=== PATIENT | male | born 1970 | race Hispanic/Latino ===

== ENCOUNTER 2019-10-02 10:40 | Emergency (ER) | payer OTHER ==
[2019-10-02 11:26] LABS: BASOPHILS % 0.2 % (0.0-1.0); EOSINOPHILS % 0.2 % (0.0-6.0); HEMATOCRIT 43.9 % (38.2-49.6); HEMOGLOBIN 15.4 g/dL (14.0-18.0); LYMPHOCYTES # (AUTO) 1.5 (1.0-3.2); LYMPHOCYTES % 24.3 % (18.0-39.1); MEAN CORPUSCULAR HEMOGLOBIN 29.4 pg (28-32); MEAN CORPUSCULAR HGB CONC 35.1 g/dL (31-35); MEAN CORPUSCULAR VOLUME 83.9 fL (81-99); MONOCYTES # (AUTO) 0.4 (0.2-0.8); MONOCYTES % 5.8 % (4.4-11.3); NEUTROPHILS # (AUTO) 4.2 (2.1-6.9); NEUTROPHILS % 69.3 % (38.7-80.0); PLATELET COUNT 165 x10e3/uL (140-360); RED BLOOD COUNT 5.23 x10e6/uL (4.3-5.7); RED CELL DISTRIBUTION WIDTH 12.4 % (11.7-14.4)
[2019-10-02] MEDS ORDERED: CEFTRIAXONE SOD 1 GM/NS 50 ML 50 ML IV ONE (11:30)
[2019-10-02] MEDS ORDERED: SODIUM CHLORIDE 0.9% 1000ML 1,000 ML IV STA (11:35)
[2019-10-02] MEDS ORDERED: AZITHROMYCIN 500MG/NS 250 ML 250 ML IV STA (11:35)
[2019-10-02 11:45] LABS: ALANINE AMINOTRANSFERASE 43 IU/L (0-55); ALBUMIN 4.1 g/dL (3.5-5.0); ALBUMIN/GLOBULIN RATIO 1.1 (0.8-2.0); ALKALINE PHOSPHATASE 98 IU/L (40-150); ANION GAP 16.4 mmol/L (8-16); BLOOD UREA NITROGEN 12 mg/dL (7-26); BUN/CREATININE RATIO 15 (6-25); CARBON DIOXIDE 20 mmol/L (22-29); CHLORIDE 103 mmol/L (98-107); CREATINE KINASE 60 IU/L (30-200); CREATININE, SERUM 0.82 mg/dL (0.72-1.25); EST GLOMERULAR FILTRATION RATE > 60 ML/MIN (60-); GLUCOSE 108 mg/dL (74-118); POTASSIUM 3.4 mmol/L (3.5-5.1); SODIUM 136 mmol/L (136-145)
[2019-10-02 11:59] LABS: CLARITY,URINE CLEAR (CLEAR); COLOR,URINE ORANGE (YELLOW); LEUKOCYTE ESTERASE ,URINE NEGATIVE (NEGATIVE)
[2019-10-02 12:00] LABS: BILIRUBIN,URINE SMALL (NEGATIVE); KETONES,URINE TRACE (NEGATIVE); NITRITE,URINE NEGATIVE (NEGATIVE); PROTEIN,URINE DIPSTICK 2+ (NEGATIVE); URINE UROBILINOGEN 0.2 mg/dL (0.2 - 1)
[2019-10-02 12:09] LABS: RBC,URINE 0-5 /HPF (0-5)
[2019-10-02 12:10] LABS: EPITHELIAL CELLS,URINE FEW /LPF
[2019-10-02 12:11] LABS: BACTERIA,URINE MANY /HPF
[2019-10-02 12:12] LABS: CALCIUM OXALATE CRYSTALS,UR MANY (FEW)
--- NOTE | 2019-10-02 12:55 | Emergency Department Note ---
History of Present Illnes History of Present Illness Chief Complaint: COVID PUI History of Present Illness This is a 48 year old male arrives to the ED with complaints of cough fever and chills for the past 2 days. Patient states his tested positive for Covid 19 and he is concerned he is getting worse . 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 Any updates have been documented here. Past Medical History Recent Fever: Yes Clinical Suspicion of Infectio: Yes New/Unexplained Change in Ment: No Other Medical History: BACK PAIN Past Surgical History: Appendectomy Social History Smoking Cessation: Never Smoker Alcohol Use: Occasional Any Illegal Drug Use: No TB Exposure/Symptoms: No Physically hurt or threatened: No Other Last Tetanus: UNK Any Pre-Existing Lines (PICC,: No Is patient up to date on immun: Yes Last Flu: 2019 Last Pneumovax: NO Review of Systems Review of Systems Constitutional: Reports no symptoms EENTM: Reports no symptoms Cardiovascular: Reports no symptoms Respiratory: Reports as per HPI, Reports cough, Reports dyspnea Gastrointestinal: Reports no symptoms Genitourinary: Reports no symptoms Musculoskeletal: Reports no symptoms Integumentary: Reports no symptoms Neurological: Reports no symptoms Psychological: Reports no symptoms Endocrine: Reports no symptoms Hematological/Lymphatic: Reports no symptoms Review of other systems: All other systems negative Physical Exam Related Data Allergies: Coded Allergies: No Known Allergies (Unverified , 10/02/19) Triage Vital Signs Vital Signs Date Time Temp Pulse Resp B/P (MAP) Pulse Ox O2 Delivery O2 Flow Rate FiO2 10/02/19 10:46 99.4 112 26 137/93 96 Vital signs reviewed: Yes Physical Exam CONSTITUTIONAL Constitutional: Present well-developed, Present well-nourished HENT HENT: Present normocephalic, Present atraumatic, Present oropharynx clear/ moist, Present nose normal HENT L/R: Present left ext ear normal, Present right ext ear normal EYES Eyes: Reports PERRL, Reports conjunctivae normal NECK Neck: Present ROM normal PULMONARY Pulmonary: Present effort normal, Present respiratory distress (mild tachypnea) CARDIOVASCULAR Cardiovascular: Present regular rhythm, Present heart sounds normal, Present capillary refill normal, Present normal rate GASTROINTESTINAL Abdominal: Present soft, Present nontender, Present bowel sounds normal GENITOURINARY Genitourinary: Present exam deferred SKIN Skin: Present warm, Present dry MUSCULOSKELETAL Musculoskeletal: Present ROM normal NEUROLOGICAL Neurological: Present alert, Present oriented x 3, Present no gross motor or sensory deficits PSYCHOLOGICAL Psychological: Present mood/affect normal, Present judgement normal Results Laboratory Result Diagram: 10/02/19 1059 Laboratory Laboratory Tests Test 10/02/19 10:59 White Blood Count 6.00 x10e3/uL (4.8-10.8) Red Blood 5.23 x10e6/uL (4.3-5.7) Hemoglobin 15.4 g/dL (14.0-18.0) Hematocrit 43.9 % (38.2-49.6) Mean Corpuscular Volume 83.9 fL (81-99) Mean Corpuscular Hemoglobin 29.4 pg (28-32) Mean Corpuscular Hemoglobin Concent 35.1 g/dL (31-35) Red Cell Distribution Width 12.4 % (11.7-14.4) Platelet Count 165 x10e3/uL (140-360) Neutrophils (%) (Auto) 69.3 % (38.7-80.0) Lymphocytes (%) (Auto) 24.3 % (18.0-39.1) Monocytes (%) (Auto) 5.8 % (4.4-11.3) Eosinophils (%) (Auto) 0.2 % (0.0-6.0) Basophils (%) (Auto) 0.2 % (0.0-1.0) Neutrophils # (Auto) 4.2 (2.1-6.9) Lymphocytes # (Auto) 1.5 (1.0-3.2) Monocytes # (Auto) 0.4 (0.2-0.8) Eosinophils # (Auto) 0.0 (0.0-0.4) Basophils # (Auto) 0.0 (0.0-0.1) Absolute Immature Granulocyte (auto 0.01 x10e3/uL (0-0.1) Lactic Acid Level 1.0 mmol/L (0.5-2.0) Lab results reviewed: Yes Imaging Imaging results reviewed: Yes Impressions Right greater than left mild bibasilar opacities, more likely atelectasis and superimposed aspiration or pneumonia Procedures 12 Lead ECG Interpretation ECG Interpretation : ECG: ECG 1 Prior ECG tracings: reviewed Rhythm: sinus tachycardia Rate: tachycardia QRS axis: normal Conduction: incomplete RBBB ST segments normal: Yes Clinical Impression: non-specific ECG Critical Care Time Total Critical Care Time (min): 35 Critical care time exclusive o: separately billable procedures Critcal care necessary due to: respiratory failure Assessment & Plan Medical Decision Making MDM 48-year-old male arrives to the ED with complaints of shortness of breath and cough. is currently tested positive for Covid 19. Patient's chest x-ray showed questionable pneumonia. High suspicion for Covid 19 given exposure. Patient admitted for further workup and management. Reassessment Reassessment Patient presented during the COVID-19 virus pandemic and has a clinical picture consistent with a COVID-19 source for sepsis. Thus, patient was treated for suspected viral sepsis rather than bacterial sepsis. Given the potential for ARDS and present suggestions of early data from COVID treatment in other areas, fluids were given judiciously and the bacterial sepsis guidelines were deviated from. For consideration of other sources, blood cultures, antibiotics and lactic acid will potentially be ordered. Will continue to monitor blood pressure and adjust fluid resuscitation accordingly." Assessment & Plan Final Impression: (1) COVID-19 (2) Acute respiratory disease due to COVID-19 virus Depart Disposition: ADMITTED Last Vital Signs Date Time Temp Pulse Resp B/P (MAP) Pulse Ox O2 Delivery O2 Flow Rate FiO2 10/02/19 11:32 100.0 101 16 122/87 97 Medications in the ED Ceftriaxone Sodium 50 ml @ 100 mls/hr ONCE ONCE IV Last administered on 10/02/19at 11:47; Admin Dose 100 MLS/HR; Start 10/02/19 at 11:30; Stop 10/02/19 at 11:59 Azithromycin 250 ml @ 250 mls/hr NOW STAT IV ; Start 10/02/19 at 11:35; Stop 10/02/19 at 12:34 Sodium Chloride 1,000 ml @ 0 mls/hr Q0M STAT IV Last administered on 10/02/19at 11:47; Admin Dose 999 MLS/HR; Start 10/02/19 at 11:35; Stop 10/02/19 at 11:37; Status DC RAMON JOHN, Oct 02, 2019 12:55
--- NOTE | 2019-10-02 13:46 | Diagnostic Imaging Report ---
EXAMINATION: CHEST SINGLE (PORTABLE) INDICATION: Pneumonia COMPARISON: None FINDINGS: LINES/TUBES:EKG leads overlie the chest. LUNGS:The lungs are moderately inflated. Right greater than left basilar patchy opacities. PLEURA:No pleural effusion or pneumothorax. MEDIASTINUM:The cardiomediastinal silhouette appears normal in size and shape. BONES/SOFT TISSUES:No acute osseous injury. ABDOMEN:No free air under the diaphragm. IMPRESSION: Right greater than left bibasilar patchy opacities. The left basilar opacities most likely represent subsegmental atelectasis. Right basilar opacities demonstrate small air bronchograms and may represent aspiration and/or pneumonia in the proper clinical setting. Signed by: Jorge Bowden MD on 10/02/2019 1:42 PM
[2019-10-02] MEDS ORDERED: ACETAMINOPHEN 325 MG TAB PO ONE (15:30)
--- NOTE | 2019-10-02 19:20 | Consultation ---
DATE OF CONSULTATION: Pulmonary Critical Care consultation CHIEF COMPLAINT: Malaise, fevers, and cough. HISTORY OF PRESENT ILLNESS: The patient is a 48-year-old man. He has no past cardiopulmonary history. His was recently diagnosed with COVID-19. Several days ago, he felt ill. He noticed some cough and some mild dyspnea at home. He denies any nausea or vomiting. The patient came to the emergency department. He received some IV fluids. He feels better. His COVID test was positive and his chest x-ray showed bilateral infiltrates. PAST SURGICAL HISTORY: Noncontributory. PAST MEDICAL HISTORY: 1. No prior history of asthma or respiratory problems. 2. No prior history of heart disease. SOCIAL HISTORY: The patient is not a smoker. He is not a drinker. His had COVID-19. ALLERGIES: NO KNOWN DRUG ALLERGIES. FAMILY HISTORY: Family history is noncontributory. REVIEW OF SYSTEMS: He has some headache and some malaise. He does not complain of fevers. There was no chest pain. He had mild dyspnea. He had mild cough. There is no abdominal pain. There is no nausea or vomiting. PHYSICAL EXAMINATION: VITAL SIGNS: The patient is afebrile. The T-max is 101.2. The blood pressure is 120/82 and his saturation is 95%. HEENT: No facial swelling or erythema. CARDIAC: Regular rate and rhythm with a normal S1, S2. LUNGS: Auscultation of lungs reveals crackles at the bases. There is no wheezing. ABDOMEN: Soft, nontender. There is no rebound or guarding. EXTREMITIES: No leg edema or calf tenderness. There is no cyanosis clubbing. SKIN: No rashes. NEUROLOGICAL: No focal abnormalities. LABORATORY DATA: White blood cell count is 6 and hemoglobin is 15.4. The platelet count is 165. BUN to creatinine ratio is 12 to 0.82 and the potassium is 3.4. The carbon dioxide is 20. RADIOGRAPHIC DATA: Chest x-ray shows some patchy infiltrates at the bases. IMPRESSION: 1. Viral pneumonia and coronavirus disease-19 infection. 2. Dehydration. PLAN: 1. The patient can be safely discharged home. 2. Continue Tylenol and fluids at home. 3. Azithromycin. 4. Follow up or return to the ER for any worsening dyspnea or cough. MD KUSH Schofield/MILLY /[id number]
[2019-10-02 20:49] VITALS: BP 117/87
--- NOTE | 2019-10-02 20:50 | NUR ---
MADE AWARE AFTER GIVING REPORT TO FLOOR NURSE THAT DR. MANZO HAS SEEN PATIENT AND STATES PT TO BE D/C, CONTACTED DR. ZAVALA- SPOKE WITH BARBER ALARCON; STATES UNDERSTOOD THAT PT CAN BE D/C PER DR. MANZO, BUT WILL CONTACT HIM TO MAKE SURE.
--- NOTE | 2019-10-02 21:11 | NUR ---
SPOKE WITH DORIAN KNIGHT NP, INFORMED THAT PT TO BE D/C, WILL BE COMING TO SEE PATIENT AND PROVIDE D/C ORDERS LATER TODAY.
[2019-10-02] MEDS ORDERED: AZITHROMYCIN250 MG PO (21:53)
[2019-10-02] MEDS ORDERED: TYLENOL325 M2 PO (21:53)
[2019-10-02] MEDS ORDERED: POTASSIUM CHLORIDE 20 MEQ TAB CR PO STA (22:14)
--- NOTE | 2019-10-02 22:33 | NUR ---
PT SEEN BY BARBER ALARCON TO D/C, SPOKE WITH DR. MANZO PT ANTONINA TO BE D/C WILL BE ON Z-PACK
--- NOTE | 2019-10-03 03:42 | History and Physical ---
PRIMARY CARE PHYSICIAN: Dr. Edita Augustin. CONSULTING PHYSICIANS: 1. Carlitos Manzo MD. 2. Fantasma Mohamud MD. CHIEF COMPLAINT: Fever. HISTORY OF PRESENT ILLNESS: The patient is a 48-year-old male, who presented to the emergency department complaining of malaise, "feeling ill," cough, mild dyspnea, fever, and chills. He denied any nausea, vomiting, or diarrhea. He is now feeling much better after IV fluids. He came in because his tested positive for COVID-19. He was tested here and his COVID-19 test came back positive. Chest x-ray had shown bilateral infiltrates at the bases. PAST MEDICAL HISTORY: None. PAST SURGICAL HISTORY: Appendectomy. FAMILY HISTORY: None. SOCIAL HISTORY: He denies any history of tobacco, alcohol, or illicit drug use. ALLERGIES: NO KNOWN ALLERGIES. REVIEW OF SYSTEMS: As per history of present illness per 14-point ROS completed. PHYSICAL EXAMINATION: GENERAL: Awake, alert, supine. LUNGS: Bibasilar crackles. Respirations even and nonlabored. He is breathing room air. HEENT: EOMI. NECK: Supple. CARDIOVASCULAR: Regular rate and rhythm. No murmur. ABDOMEN: Bowel sounds positive. Soft, nontender. EXTREMITIES: Without pitting edema. No clubbing, cyanosis, or marked swelling. NEUROLOGIC: GCS 15. Nonfocal. LABORATORY DATA: WBC 6, hemoglobin 15.4, hematocrit 43.9, platelets 165. Sodium 136, potassium 3.4, chloride 103, CO2 of 20, anion gap 16.4. BUN 12, creatinine 0.82, estimated GFR greater than 60, glucose 108. Lactic acid 1.0, calcium 9.0, total bilirubin 0.6. AST 27, ALT 43, alkaline phosphatase 98. Creatine kinase 60, CK-MB 0.2, troponin I less than 0.001. Total protein 7.9, albumin 4.1. Urinalysis was done showing a specific gravity greater than 1.03. Total protein 2+, trace amount of ketones, leukocyte esterase negative. WBC 6 to 10, a few epithelial cells, many calcium oxalate, many urine bacteria. Serology on 10/02/2019, coronavirus PCR was detected. Blood cultures x2 collected and pending as far as final results. DIAGNOSTIC STUDIES/RADIOLOGY: He had a chest x-ray done showed right greater than left bibasilar patchy opacities. The left basilar opacities most likely represent segmental atelectasis. Right basilar opacity demonstrates small air bronchograms and may represent aspiration or pneumonia in the proper clinical setting. ASSESSMENT AND PLAN: 1. Viral community-acquired pneumonia due to coronavirus disease 2019, present on arrival. The patient received azithromycin and Rocephin IV. We will send him home on Z-Marcos for 3 days on Tylenol p.r.n. and instructed to increase oral fluids. The patient was instructed to self quarantine for least the next 2 weeks. Follow up with PCP in 1 to 2 weeks. Follow up with Dr. Manzo and Dr. Mohamud as directed and as needed. 2. Dehydration. The patient received 1 L of fluid in the ER. 3. Mild acute hypokalemia. Potassium level 3.4, 20 mEq potassium chloride p.o. once ordered. ER nurse aware. DIET: Continue cardiac diet. ACTIVITY LEVEL: As tolerated. Dictated by Iván Kumar NP Javi Dominguez MD HWP/MODL /[id number]
--- OUTSIDE RECORDS SUMMARY | 2019-11-15 19:51 | XMS REPORT | Continuity of Care Document ---
Author Author [facility] t Organization [facility] Address [address] [place] [address] Phone Unavailable Care Team Providers Care Car Salesperson Name Role Phone KIKAEZRA PCP Yusef JOHN Attphys Unavailable Hans MANZO Admphys Unavailable Problems Condition Name Condition Details Condition Category Status Onset Date Resolution Date Last Treatment Date Treating Clinician Comments Source Acute respiratory failure due to severe acute respiratory syndrome coronavirus 2 (SARS-CoV-2) infection Problem Active [facility] Allergies, Adverse Reactions, Alerts This patient has no known allergies or adverse reactions. Social History Social Habit Start Date Stop Date Quantity Comments Source Sex Assigned At 1970 00:00:00 1970 00:00:00 Male [facility] Medications Ordered Medication Name Filled Medication Name Start Date Stop Da te Current Medication? Ordering Clinician Indication Dosage Frequency Signature (SIG) Comments Components Source Acetaminophen (Tylenol) 325 Mg CAPSULE Acetaminophen (Tyleno l) 325 Mg CAPSULE 2019-10-02 21:53:00 Yes 650 Every 6 Hours as needed for Elevated Temperature [facility] Azithromycin (Z-Marcos) 250 Mg TABLET Azithromycin (Z-Marcos) 250 Mg TABLET 2019-10-02 21:53:00 Yes 250 Use As Directed [facility] Vital Signs Vital Name Observation Time Observation Value Comments Source Body Temperature 2019-10-02 20:49:00 99.9 [degF] [facility] Procedures This patient has no known procedures. Plan of Care Planned Activity Planned Date Details Comments Source Instructions COVID-19: 07/02/2019 [facility] Encounters Start Date/Time End Date/Time Encounter Type Admission Type [facility] Care Facility Care Department Encounter ID Source 2019-10-02 15:57:00 2019-10-02 22:52:00 Discharged Inpatient 1 RAMON JOHN [facility] [id number] [facility] Results Test Description Test Time Test Comments Results Result Comments Source CHEST SINGLE (PORTABLE) 2019-10-02 13:41:00 [facility] [address] [address] Patient Name: NAYE ALTAMIRANO MR #: [id number] : 1970 Age/Sex: 48/M Req #: [id number] Adm Physician: Ordered by: RAMON JOHN DO Report #: [id number] Location: ER Room/Bed: Procedure: [id number] DX/CHEST SINGLE (PORTABLE) Exam Date: 10/02/19 Exam Time: 1138 REPORT STATUS: Signed EXAMINATION: CHEST SINGLE (PORTABLE) INDICATION: Pneumonia COMPARISON: None FINDINGS: LINES/TUBES:EKG leads overlie the chest. LUNGS:The lungs are moderately inflated. Right greater than left basilar patchy opacities. PLEURA:No pleural effusion or pneumothorax. MEDIASTINUM:The cardiomediastinal silhouette appears normal in size and shape. BONES/SOFT TISSUES:No acute osseous injury. ABDOMEN:No free air under the diaphragm. IMPRESSION: Right greater than left bibasilar patchy opacities. The left basilar opacities most likely represent subsegmental atelectasis. Right basilar opacities demonstrate small air bronchograms and may represent aspiration and/or pneumonia in the proper clinical setting. Signed by: Tabatha Stein MD on 10/02/2019 1:42 PM Dictated By: TABATHA STEIN MD Elect ronically Signed By: TABATHA STEIN MD on 10/02/191341 Transcribed By: GASTON on 10/02/191341 COPY TO: RAMON JOHN DO Fluoroscopic procedure less than one hour duration 2019-09-17 12:10:00 Test Item Coronavirus (PCR) (test code = Coronavirus (PCR)) DETECTED NOTD ETECTED SARS-COV2/RT-PCRResults are for the detection of SARS-COV-2 RNA. The SARS-COV-2 RNA is generally detectable in nasopharyngeal swab specimens during the acute ph ase of infection. Positive results are indicitive of active infection with SARS- COV-2; clinical correlation with patient history and other diagnostic informatio n is necessary to determine patient infection status. Positive results do not ru le out bacterial infection or co-infection with other viruses. The agent detecte d may not be the definite cause of the disease.The limit of detection for this a ssay is 250 copies/mLThe SARS-CoV-2 test is a rapid, real-time RT-PCR test inten ded for the qualitative detection of nucleic acid from SARS-CoV-2 in nasopharyng eal swab specimen collected from individuals suspected of COVID-19 by their [facility] provider. This test has not been Food and Drug Administration (FDA) clear ed or approved and has been authorized by FDA under an Emergency Use Authorizati on (EUA). This EUA will be effective until the declaration that circumstances ex ist justifying the authorization of the emergency use of in vitro diagnostic jessica t for detection and or diagnosis of COVID-19 is terminated under section 564(b) of the Act, or the the EUA is revoked under 564(g) of the ACT.Testing performed by [facility], [place] [address]JABFaith Community HospitalFluoroscopic procedure less than one hour vssajnhx7312-64-70 12:10:00* Test Item Value Reference Range Interpretation Comments Coronavirus (PCR) (test code = Coronavirus (PCR)) DETECTED NOTD ETECTED SARS-COV2/RT-PCRResults are for the detection of SARS-COV-2 RNA. The SARS-COV-2 RNA is generally detectable in nasopharyngeal swab specimens during the acute ph ase of infection. Positive results are indicitive of active infection with SARS- COV-2; clinical correlation with patient history and other diagnostic informatio n is necessary to determine patient infection status. Positive results do not ru le out bacterial infection or co-infection with other viruses. The agent detecte d may not be the definite cause of the disease.The limit of detection for this a ssay is 250 copies/mLThe SARS-CoV-2 test is a rapid, real-time RT-PCR test inten ded for the qualitative detection of nucleic acid from SARS-CoV-2 in nasopharyng eal swab specimen collected from individuals suspected of COVID-19 by their [facility] provider. This test has not been Food and Drug Administration (FDA) clear ed or approved and has been authorized by FDA under an Emergency Use Authorizati on (EUA). This EUA will be effective until the declaration that circumstances ex ist justifying the authorization of the emergency use of in vitro diagnostic jessica t for detection and or diagnosis of COVID-19 is terminated under section 564(b) of the Act, or the the EUA is revoked under 564(g) of the ACT.Testing performed by [facility], [place] [address]ASUFaith Community HospitalBlood leukocytes automated count (number/volume) 2019-10-02 10:59:00* Test Item Value Reference Range Interpretation Comments White Blood Count (test code = 6690-2) 6.00 4.8-10.8 [facility] HospitalBlood erythrocytes automated count (number/volume)2019-10-02 10:59:00* Test Item Value Reference Range Interpretation Comments Red Blood Count (test code = 789-8) 5.23 4.3-5.7 [facility] HospitalBlood hemoglobin measurement (moles/volume)2019-10-02 10:59:00* Test Item Value Reference Range Interpretation Comments Hemoglobin (test code = 09449-5) 15.4 14.0-18.0 [facility] HospitalAutomated blood hematocrit (volume fraction)2019-10-02 10:59:00* Test Item Value Reference Range Interpretation Comments Hematocrit (test code = 4544-3) 43.9 38.2-49.6 [facility] HospitalAutomated erythrocyte mean corpuscular bzoxhc2334-00-92 10:59:00* Test Item Value Reference Range Interpretation Comments Mean Corpuscular Volume (test code = 787-2) 83.9 81-99 [facility] HospitalAutomated erythrocyte mean corpuscular hemoglobin (mass per erythrocyte)2019-10-02 10:59:00* Test Item Value Reference Range Interpretation Comments Mean Corpuscular Hemoglobin (test code = 785-6) 29.4 28-32 [facility] HospitalAutomated erythrocyte mean corpuscular hemoglobin concentration measurement (mass/volume)2019-10-02 10:59:00* Test Item Value Reference Range Interpretation Comments Mean Corpuscular Hemoglobin Concent (test code = 786-4) 35.1 31-35 [facility] HospitalRDW OhkIg-Uuy8074-42-16 10:59:00* Test Item Value Reference Range Interpretation Comments Red Cell Distribution Width (test code = 60950-7) 12.4 11.7 -14.4 [facility] HospitalAutomated blood platelet count (count/volume)2019-10-02 10:59:00* Test Item Value Reference Range Interpretation Comments Platelet Count (test code = 777-3) 165 140-360 [facility] neutrophil count as percentage of total rayfshnawt4697-26-32 10:59:00* Test Item Value Reference Range Interpretation Comments Neutrophils (%) (Auto) (test code = 27669-0) 69.3 38.7-80.0 [facility] HospitalAutomated blood lymphocyte count as percentage ot total nkactpduts6070-24-24 10:59:00* Test Item Value Reference Range Interpretation Comments Lymphocytes (%) (Auto) (test code = 736-9) 24.3 18.0-39.1 [facility]ed [facility] monocyte count as percentage of total unnapuxwsp2563-02-21 10:59:00* Test Item Value Reference Range Interpretation Comments Monocytes (%) (Auto) (test code = 5905-5) 5.8 4.4-11.3 [facility] HospitalAutomated blood eosinophil count as percentage of total wpbhfwppvc2183-27-24 10:59:00* Test Item Value Reference Range Interpretation Comments Eosinophils (%) (Auto) (test code = 713-8) 0.2 0.0-6.0 [facility] HospitalAutunc health pardeeed blood basophil count as percentage of total sjjuhmpoby9477-83-14 10:59:00* Test Item Value Reference Range Interpretation Comments Basophils (%) (Auto) (test code = 706-2) 0.2 0.0-1.0 [facility] HospitalFluoroscopic procedure less than one hour terdzxwu1618-74-69 10:59:00* Test Item Value Reference Range Interpretation Comments IM GRANULOCYTES % (test code = IM GRANULOCYTES %) 0.2 0.0- 1.0 [facility] HospitalAutomated blood neutrophil count 2019-10-02 10:59:00* Test Item Value Reference Range Interpretation Comments Neutrophils # (Auto) (test code = 751-8) 4.2 2.1-6.9 [facility] HospitalBlood lymphocytes count (number/volume) 2019-10-02 10:59:00* Test Item Value Reference Range Interpretation Comments Lymphocytes # (Auto) (test code = 49314-0) 1.5 1.0-3.2 [facility] HospitalBl[facility] monocytes automated count (number/volume)2019-10-02 10:59:00* Test Item Value Reference Range Interpretation Comments Monocytes # (Auto) (test code = 742-7) 0.4 0.2-0.8 [facility] HospitalAutomated blood eosinophil count 2019-10-02 10:59:00* Test Item Value Reference Range Interpretation Comments Eosinophils # (Auto) (test code = 711-2) 0.0 0.0-0.4 [facility] HospitalAutomated blood basophil count (count/volume)2019-10-02 10:59:00* Test Item Value Reference Range Interpretation Comments Basophils # (Auto) (test code = 704-7) 0.0 0.0-0.1 [facility] HospitalFluoroscopic procedure less than one hour wxvhljyb1900-95-24 10:59:00* Test Item Value Reference Range Interpretation Comments Absolute Immature Granulocyte (auto (jessica t code = Absolute Immature Granulocyte (auto) 0.01 0-0.1 [facility] HospitalUrine color cuuubkudhzvrz9591-75-03 10:59:00* Test Item Value Reference Range Interpretation Comments Urine Color (test code = 5778-6) ORANGE YELLOW [facility] HospitalUrine flwkhri0516-89-96 10:59:00* Test Item Value Reference Range Interpretation Comments Urine Clarity (test code = 91419-4) CLEAR CLEAR [facility] Urine by Test strip 2019-10-02 10:59:00* Test Item Value Reference Range Interpretation Comments Urine Specific [place] (test code = 5811-5) >=1.030 1.010-1.02 5 [facility] HospitalUrine pH measurement by automated test auutm6107-72-13 10:59:00* Test Item Value Reference Range Interpretation Comments Urine pH (test code = 50816-4) 6 5-7 [facility] HospitalUrine leukocyte esterase detection by qwgzqsqg0237-26-25 10:59:00* Test Item Value Reference Range Interpretation Comments Urine Leukocyte Esterase (test code = 5799-2) NEGATIVE NEGATIVE [facility] HospitalUrine nitrite qapkrmsma5325-53-25 10:59:00* Test Item Value Reference Range Interpretation Comments Urine Nitrite (test code = 51621-0) NEGATIVE NEGATIVE [facility] HospitalUrine protein measurement by test strip (mass/volume)2019-10-02 10:59:00* Test Item Value Reference Range Interpretation Comments Urine Protein (test code = 5804-0) 2+ NEGATIVE [facility] HospitalUrine glucose cyzqiahst6281-80-56 10:59:00* Test Item Value Reference Range Interpretation Comments Urine Glucose (UA) (test code = 2349-9) NEGATIVE NEGATIVE [facility] HospitalUrine ketones detection by automated test sponk1429-10-44 10:59:00* Test Item Value Reference Range Interpretation Comments Urine Ketones (test code = 66974-2) TRACE NEGATIVE [facility] HospitalUrine urobilinogen measurement by test strip (mass/volume)2019-10-02 10:59:00* Test Item Value Reference Range Interpretation Comments Urine Urobilinogen (test code = 71256-0) 0.2 0.2-1 [facility] HospitalUrine total bilirubin measurement (mass/volume)2019-10-02 10:59:00* Test Item Value Reference Range Interpretation Comments Urine Bilirubin (test code = 1978-6) SMALL NEGATIVE [facility] HospitalUrine erythrocytes nyjccstds8926-94-73 10:59:00* Test Item Value Reference Range Interpretation Comments Urine Blood (test code = 47961-7) NEGATIVE NEGATIVE [facility] HospitalAutomated urine sediment leukocyte count by microscopy (number/high power field)2019-10-02 10:59:00* Test Item Value Reference Range Interpretation Comments Urine WBC (test code = 5821-4) 6-10 0-5 [facility] HospitalErythrocytes detection in urine sediment by light mzuytgpbza0349-21-52 10:59:00* Test Item Value Reference Range Interpretation Comments Urine RBC (test code = 19268-5) 0-5 0-5 [facility] HospitalBacteria detection in urine sediment by light pibdqtgxnx9740-99-90 10:59:00* Test Item Value Reference Range Interpretation Comments Urine Bacteria (test code = 73742-8) MANY NONE [facility] HospitalEpithelial cells detection in urine sediment by light uwrkekbrtt0739-04-28 10:59:00* Test Item Value Reference Range Interpretation Comments Urine Epithelial Cells (test code = 59450-9) FEW NONE [facility] HospitalCalcium oxalate crystals detection in urine sediment by light dsjdtrxszn0431-15-52 10:59:00* Test Item Value Reference Range Interpretation Comments Urine Calcium Oxalate Crystals (test code = 5774-5) MANY FE W [facility]anoerum or plasma sodium measurement (moles/volume)2019-10-02 10:59:00* Test Item Value Reference Range Interpretation Comments Sodium Level (test code = 2951-2) 136 136-145 [facility]anoerum or plasma potassium measurement (moles/volume)2019-10-02 10:59:00* Test Item Value Reference Range Interpretation Comments Potassium Level (test code = 2823-3) 3.4 3.5-5.1 [facility]ano[facility] or plasma chloride measurement (moles/volume)2019-10-02 10:59:00* Test Item Value Reference Range Interpretation Comments Chloride Level (test code = 2075-0) 103 98-107 [facility]anoerum or plasma carbon dioxide, total measurement (moles/volume)2019-10-02 10:59:00* Test Item Value Reference Range Interpretation Comments Carbon Dioxide Level (test code = 2028-9) 20 22-29 [facility]anoerum or plasma anion aux0692-12-93 10:59:00* Test Item Value Reference Range Interpretation Comments Anion Gap (test code = 98718-7) 16.4 8-16 [facility] or plasma urea nitrogen measurement (mass/volume)2019-10-02 10:59:00* Test Item Value Reference Range Interpretation Comments Blood Urea Nitrogen (test code = 3094-0) 12 7-26 [facility] or plasma creatinine measurement (mass/volume)2019-10-02 10:59:00* Test Item Value Reference Range Interpretation Comments Creatinine (test code = 2160-0) 0.82 0.72-1.25 [facility]anoer[facility] or plasma urea nitrogen/creatinine mass dgral6812-02-13 10:59:00* Test Item Value Reference Range Interpretation Comments BUN/Creatinine Ratio (test code = 3097-3) 15 6-25 [facility] HospitalEstimated glomerular filtration rate (GFR) uezlrmrymnqxo8113-02-65 10:59:00* Test Item Value Reference Range Interpretation Comments Estimat Glomerular Filtration Rate (test code = 409828916) > 60 >60 Ranges were taken from the National Kidney Disease Education Program and the [facility] [employer] literature.Reference ranges:60 or greater: Kyeuez87-96 ( for 3 consecutive months): Chronic kidney disease 15 or less: Kidney failureFaith Community HospitalGlucose nelpavcnzlp8932-71-74 10:59:00* Test Item Value Reference Range Interpretation Comments Glucose Level (test code = XIC0362) 108 74-118 [facility] or plasma calcium measurement (mass/volume)2019-10-02 10:59:00* Test Item Value Reference Range Interpretation Comments Calcium Level (test code = 73243-7) 9.0 8.4-10.2 [facility] HospitalFluoroscopic procedure less than one hour dquwqoaa2272-99-94 10:59:00* Test Item Value Reference Range Interpretation Comments Lactic Acid Level (test code = Lactic Acid Level) 1.0 0.5- 2.0 [facility] or plasma total bilirubin measurement (mass/volume)2019-10-02 10:59:00* Test Item Value Reference Range Interpretation Comments Total Bilirubin (test code = 1975-2) 0.6 0.2-1.2 [facility] HospitalFluoroscopic procedure less than one hour roznvmsl4765-92-92 10:59:00* Test Item Value Reference Range Interpretation Comments Aspartate Amino Transf (AST/SGOT) (test code = Aspartate Amino Transf (AST/SGOT)) 27 5-34 [facility]anoerum or plasma alanine aminotransferase measurement (enzymatic activity/volume)2019-10-02 10:59:00* Test Item Value Reference Range Interpretation Comments Alanine Aminotransferase (ALT/SGPT) (test code = 1742-6) 43 0-55 [facility] or plasma protein measurement (mass/volume)2019-10-02 10:59:00* Test Item Value Reference Range Interpretation Comments Total Protein (test code = 2885-2) 7.9 6.5-8.1 [facility] or plasma albumin measurement (mass/volume)2019-10-02 10:59:00* Test Item Value Reference Range Interpretation Comments Albumin (test code = 1751-7) 4.1 3.5-5.0 [facility] HospitalPlasma globulin measurement (mass/volume) 2019-10-02 10:59:00* Test Item Value Reference Range Interpretation Comments Globulin (test code = 68389-2) 3.8 2.3-3.5 [facility] or plasma albumin/globulin mass zkvll9876-21-48 10:59:00* Test Item Value Reference Range Interpretation Comments Albumin/Globulin Ratio (test code = 1759-0) 1.1 0.8-2.0 [facility] or plasma alkaline phosphatase measurement (enzymatic activity/volume)2019-10-02 10:59:00* Test Item Value Reference Range Interpretation Comments Alkaline Phosphatase (test code = 6768-6) 98 40-150 [facility]er[facility] or plasma creatine kinase measurement (enzymatic activity/volume)2019-10-02 10:59:00* Test Item Value Reference Range Interpretation Comments Creatine Kinase (test code = 2157-6) 60 30-200 [facility]ano[facility] or plasma creatine kinase MB measurement (mass/volume)2019-10-02 10:59:00* Test Item Value Reference Range Interpretation Comments Creatine Kinase MB (test code = 37109-7) 0.20 0-5.0 [facility] HospitalTroponin I measurement by highly sensitive enzyme isuutknnrlm0258-74-68 10:59:00* Test Item Value Reference Range Interpretation Comments Troponin I (test code = 82616-2) < 0.001 0-0.300 [facility] HospitalBlood leukocytes automated count (number/volume)2019-10-02 10:59:00* Test Item Value Reference Range Interpretation Comments White Blood Count (test code = 6690-2) 6.00 4.8-10.8 [facility] HospitalBlood erythrocytes automated count (number/volume)2019-10-02 10:59:00* Test Item Value Reference Range Interpretation Comments Red Blood Count (test code = 789-8) 5.23 4.3-5.7 [facility] HospitalBlood hemoglobin measurement (moles/volume)2019-10-02 10:59:00* Test Item Value Reference Range Interpretation Comments Hemoglobin (test code = 95695-7) 15.4 14.0-18.0 [facility] HospitalAutomated blood hematocrit (volume fraction)2019-10-02 10:59:00* Test Item Value Reference Range Interpretation Comments Hematocrit (test code = 4544-3) 43.9 38.2-49.6 [facility] HospitalAutomated erythrocyte mean corpuscular gsgphk6288-65-19 10:59:00* Test Item Value Reference Range Interpretation Comments Mean Corpuscular Volume (test code = 787-2) 83.9 81-99 [facility] HospitalAutomated erythrocyte mean corpuscular hemoglobin (mass per erythrocyte)2019-10-02 10:59:00* Test Item Value Reference Range Interpretation Comments Mean Corpuscular Hemoglobin (test code = 785-6) 29.4 28-32 [facility] HospitalAutomated erythrocyte mean corpuscular hemoglobin concentration measurement (mass/volume)2019-10-02 10:59:00* Test Item Value Reference Range Interpretation Comments Mean Corpuscular Hemoglobin Concent (test code = 786-4) 35.1 31-35 [facility] HospitalRDW FceNn-Xcc5804-92-16 10:59:00* Test Item Value Reference Range Interpretation Comments Red Cell Distribution Width (test code = 61818-6) 12.4 11.7 -14.4 [facility] HospitalAutomated blood platelet count (count/volume)2019-10-02 10:59:00* Test Item Value Reference Range Interpretation Comments Platelet Count (test code = 777-3) 165 140-360 [facility] HospitalAutunc health pardeeed blood segmented neutrophil count as percentage of total vujfkjkfqs3363-11-23 10:59:00* Test Item Value Reference Range Interpretation Comments Neutrophils (%) (Auto) (test code = 87703-6) 69.3 38.7-80.0 [facility] HospitalAutomated blood lymphocyte count as percentage ot total fefhhopanx4877-32-23 10:59:00* Test Item Value Reference Range Interpretation Comments Lymphocytes (%) (Auto) (test code = 736-9) 24.3 18.0-39.1 [facility] HospitalAutomated blood monocyte count as percentage of total gkgbmfkrbq9667-52-08 10:59:00* Test Item Value Reference Range Interpretation Comments Monocytes (%) (Auto) (test code = 5905-5) 5.8 4.4-11.3 [facility] HospitalAutomated blood eosinophil count as percentage of total wssonpurcj6889-51-16 10:59:00* Test Item Value Reference Range Interpretation Comments Eosinophils (%) (Auto) (test code = 713-8) 0.2 0.0-6.0 [facility] HospitalAutomated blood basophil count as percentage of total tpaginksxl4668-90-41 10:59:00* Test Item Value Reference Range Interpretation Comments Basophils (%) (Auto) (test code = 706-2) 0.2 0.0-1.0 [facility] HospitalFluoroscopic procedure less than one hour ybffkrrf8526-91-18 10:59:00* Test Item Value Reference Range Interpretation Comments IM GRANULOCYTES % (test code = IM GRANULOCYTES %) 0.2 0.0- 1.0 [facility] HospitalAutomated blood neutrophil count 2019-10-02 10:59:00* Test Item Value Reference Range Interpretation Comments Neutrophils # (Auto) (test code = 751-8) 4.2 2.1-6.9 [facility] HospitalBlood lymphocytes count (number/volume) 2019-10-02 10:59:00* Test Item Value Reference Range Interpretation Comments Lymphocytes # (Auto) (test code = 27849-2) 1.5 1.0-3.2 [facility] HospitalBl[facility] hospital monocytes automated count (number/volume)2019-10-02 10:59:00* Test Item Value Reference Range Interpretation Comments Monocytes # (Auto) (test code = 742-7) 0.4 0.2-0.8 [facility] HospitalAutomated blood eosinophil count 2019-10-02 10:59:00* Test Item Value Reference Range Interpretation Comments Eosinophils # (Auto) (test code = 711-2) 0.0 0.0-0.4 [facility] HospitalAutomated blood basophil count (count/volume)2019-10-02 10:59:00* Test Item Value Reference Range Interpretation Comments Basophils # (Auto) (test code = 704-7) 0.0 0.0-0.1 [facility] HospitalFluoroscopic procedure less than one hour zyeqfots8216-18-51 10:59:00* Test Item Value Reference Range Interpretation Comments Absolute Immature Granulocyte (auto (jessica t code = Absolute Immature Granulocyte (auto) 0.01 0-0.1 [facility] [id number] 10:59:00* Test Item Value Reference Range Interpretation Comments Urine Color (test code = 5778-6) ORANGE YELLOW [facility] [id number] 10:59:00* Test Item Value Reference Range Interpretation Comments Urine Clarity (test code = 50490-5) CLEAR CLEAR [facility] Test [facility] 2019-10-02 10:59:00* Test Item Value Reference Range Interpretation Comments Urine Specific [place] (test code = 5811-5) >=1.030 1.010-1.02 5 [facility] by automated test [id number] 10:59:00* Test Item Value Reference Range Interpretation Comments Urine pH (test code = 92510-5) 6 5-7 [facility] leukocyte esterase detection by [id number] 10:59:00* Test Item Value Reference Range Interpretation Comments Urine Leukocyte Esterase (test code = 5799-2) NEGATIVE NEGATIVE [facility] nitrite [id number] 10:59:00* Test Item Value Reference Range Interpretation Comments Urine Nitrite (test code = 40010-2) NEGATIVE NEGATIVE [facility] protein measurement by test strip (mass/volume)2019-10-02 10:59:00* Test Item Value Reference Range Interpretation Comments Urine Protein (test code = 5804-0) 2+ NEGATIVE [facility] glucose ulbsjwkyy6809-60-23 10:59:00* Test Item Value Reference Range Interpretation Comments Urine Glucose (UA) (test code = 2349-9) NEGATIVE NEGATIVE [facility] ketones detection by automated test [id number] 10:59:00* Test Item Value Reference Range Interpretation Comments Urine Ketones (test code = 58593-9) TRACE NEGATIVE [facility] urobilinogen measurement by test strip (mass/volume)2019-10-02 10:59:00* Test Item Value Reference Range Interpretation Comments Urine Urobilinogen (test code = 16139-7) 0.2 0.2-1 [facility] total bilirubin measurement (mass/volume)2019-10-02 10:59:00* Test Item Value Reference Range Interpretation Comments Urine Bilirubin (test code = 1978-6) SMALL NEGATIVE [facility] erythrocytes [id number] 10:59:00* Test Item Value Reference Range Interpretation Comments Urine Blood (test code = 08814-8) NEGATIVE NEGATIVE [facility] HospitalAutomated urine sediment leukocyte count by microscopy (number/high power field)2019-10-02 10:59:00* Test Item Value Reference Range Interpretation Comments Urine WBC (test code = 5821-4) 6-10 0-5 [facility] HospitalErythrocytes detection in urine sediment by light [id number] 10:59:00* Test Item Value Reference Range Interpretation Comments Urine RBC (test code = 53005-8) 0-5 0-5 [facility] HospitalBacteria detection in urine sediment by light [id number] 10:59:00* Test Item Value Reference Range Interpretation Comments Urine Bacteria (test code = 56195-5) MANY NONE [facility] HospitalEpithelial cells detection in urine sediment by light [id number] 10:59:00* Test Item Value Reference Range Interpretation Comments Urine Epithelial Cells (test code = 47210-3) FEW NONE [facility] HospitalCalcium oxalate crystals detection in urine sediment by light frsharwili6954-80-58 10:59:00* Test Item Value Reference Range Interpretation Comments Urine Calcium Oxalate Crystals (test code = 5774-5) MANY FE W [facility] plasma sodium measurement (moles/volume)2019-10-02 10:59:00* Test Item Value Reference Range Interpretation Comments Sodium Level (test code = 2951-2) 136 136-145 [facility] plasma potassium measurement (moles/volume)2019-10-02 10:59:00* Test Item Value Reference Range Interpretation Comments Potassium Level (test code = 2823-3) 3.4 3.5-5.1 [facility] plasma chloride measurement (moles/volume)2019-10-02 10:59:00* Test Item Value Reference Range Interpretation Comments Chloride Level (test code = 2075-0) 103 98-107 [facility] plasma carbon dioxide, total measurement (moles/volume)2019-10-02 10:59:00* Test Item Value Reference Range Interpretation Comments Carbon Dioxide Level (test code = 2028-9) 20 22-29 [facility] or plasma anion [id number] 10:59:00* Test Item Value Reference Range Interpretation Comments Anion Gap (test code = 96296-3) 16.4 8-16 [facility] urea nitrogen measurement (mass/volume)2019-10-02 10:59:00* Test Item Value Reference Range Interpretation Comments Blood Urea Nitrogen (test code = 3094-0) 12 7-26 [facility] plasma creatinine measurement (mass/volume)2019-10-02 10:59:00* Test Item Value Reference Range Interpretation Comments Creatinine (test code = 2160-0) 0.82 0.72-1.25 [facility] plasma urea nitrogen/creatinine mass [id number] 10:59:00* Test Item Value Reference Range Interpretation Comments BUN/Creatinine Ratio (test code = 3097-3) 15 6-25 [facility] HospitalEstimated glomerular filtration rate (GFR) gsfbixpwcpipt2477-73-83 10:59:00* Test Item Value Reference Range Interpretation Comments Estimat Glomerular Filtration Rate (test code = 265452091) > 60 >60 Ranges were taken from the National Kidney Disease Education Program and the [facility] [employer] literature.Reference ranges:60 or greater: Exllby14-15 ( for 3 consecutive months): Chronic kidney disease 15 or less: Kidney failureFaith Community HospitalGlucose slojifdazfp4860-96-54 10:59:00* Test Item Value Reference Range Interpretation Comments Glucose Level (test code = LRF7236) 108 74-118 [facility] plasma calcium measurement (mass/volume)2019-10-02 10:59:00* Test Item Value Reference Range Interpretation Comments Calcium Level (test code = 89669-9) 9.0 8.4-10.2 [facility] HospitalFluoroscopic procedure less than one hour atylovak3190-66-69 10:59:00* Test Item Value Reference Range Interpretation Comments Lactic Acid Level (test code = Lactic Acid Level) 1.0 0.5- 2.0 [facility] plasma total bilirubin measurement (mass/volume)2019-10-02 10:59:00* Test Item Value Reference Range Interpretation Comments Total Bilirubin (test code = 1975-2) 0.6 0.2-1.2 [facility] HospitalFluoroscopic procedure less than one hour [id number] 10:59:00* Test Item Value Reference Range Interpretation Comments Aspartate Amino Transf (AST/SGOT) (test code = Aspartate Amino Transf (AST/SGOT)) 27 5-34 [facility] or plasma alanine aminotransferase measurement (enzymatic activity/volume)2019-10-02 10:59:00* Test Item Value Reference Range Interpretation Comments Alanine Aminotransferase (ALT/SGPT) (test code = 1742-6) 43 0-55 [facility] or plasma protein measurement (mass/volume)2019-10-02 10:59:00* Test Item Value Reference Range Interpretation Comments Total Protein (test code = 2885-2) 7.9 6.5-8.1 [facility] plasma albumin measurement (mass/volume)2019-10-02 10:59:00* Test Item Value Reference Range Interpretation Comments Albumin (test code = 1751-7) 4.1 3.5-5.0 [facility] HospitalPlasma globulin measurement (mass/volume) 2019-10-02 10:59:00* Test Item Value Reference Range Interpretation Comments Globulin (test code = 86956-0) 3.8 2.3-3.5 [facility] or plasma albumin/globulin mass umnlq7606-33-68 10:59:00* Test Item Value Reference Range Interpretation Comments Albumin/Globulin Ratio (test code = 1759-0) 1.1 0.8-2.0 [facility] plasma alkaline phosphatase measurement (enzymatic activity/volume)2019-10-02 10:59:00* Test Item Value Reference Range Interpretation Comments Alkaline Phosphatase (test code = 6768-6) 98 40-150 [facility] or plasma creatine kinase measurement (enzymatic activity/volume)2019-10-02 10:59:00* Test Item Value Reference Range Interpretation Comments Creatine Kinase (test code = 2157-6) 60 30-200 [facility] or plasma creatine kinase MB measurement (mass/volume)2019-10-02 10:59:00* Test Item Value Reference Range Interpretation Comments Creatine Kinase MB (test code = 34907-4) 0.20 0-5.0 [facility] HospitalTroponin I measurement by highly sensitive enzyme fdnrgvubtpd1291-03-28 10:59:00* Test Item Value Reference Range Interpretation Comments Troponin I (test code = 87495-8) < 0.001 0-0.300 [facility]
== END 2019-10-02 22:50 | disposition home or self-care (01) ==
LOC: ER 10:40 → ERHOLD 15:57 → UNDOADMIN 15:57 → ERHOLD 16:33 → UNDODISIN 22:52
DX: U07.1 COVID-19 (principal); J12.9 Viral pneumonia, unspecified; E86.0 Dehydration; E87.6 Hypokalemia
CPT/HCPCS: 36415; 71045; 80053; 81001; 82550; 82553; 83605; 84484; 85025; 87040; 93005; 99285; J0456; J0696; J7030; U0002